=== PATIENT | male | born 1950 | race Caucasian/White ===

== ENCOUNTER 2020-12-12 10:50 | Emergency (ER) | payer MEDICARE, BC ==
--- NOTE | 2020-12-12 11:23 | ED Physician Documentation ---
PD HPI NVD - Stated complaint Stated Complaint: COLD SWEAT - Chief complaint Chief Complaint: Cardiac - History obtained from History obtained from: Patient - History of Present Illness Timing - onset: How many hours ago (2), Today Timing - duration: Minutes (He states he had gotten often had not had breakfast as yet and went to [employer]. Is doing the Covid shots 1 drug to get his Covid shot. Prior to receiving it, while standing he felt lightheaded nauseous and sweaty for just a minute. This improved after sitting down. He then got his Covid shot.) Timing - details: Abrupt onset, Now resolved (Has felt okay after that 1-2 minutes, once sat for a few minutes. Has felt okay with the shot and since. Concerned about heart cause of the symptoms, so came here for eval. Feeling okay still on arrival to ER.) Associated symptoms: Near syncope / syncope (briefly lightheaded, nauseated, pale/sweaty. Wtihout chest, abd nor head pain.). No: Fever, Abdominal pain, Dizzy, Loss of appetite Contributing factors: No: Sick contact, Bad food Improved by: Other (sitting down for few minutes.) Similar symptoms before: Has not had sx before Recently seen: Not recently seen Review of Systems Constitutional: denies: Fever, Chills Nose: denies: Rhinorrhea / runny nose, Congestion Throat: denies: Sore throat Cardiac: denies: Chest pain / pressure (Denies any exertional related chest pain or dyspnea. He has had less activity lately but still does yard work) Respiratory: denies: Cough GI: denies: Abdominal Pain, Nausea, Vomiting, Diarrhea Skin: denies: Rash, Lesions Musculoskeletal: denies: Extremity swelling Neurologic: denies: Syncope, Altered mental status, Headache PD PAST MEDICAL HISTORY - Past Medical History Cardiovascular: None Respiratory: None Neuro: None Endocrine/Autoimmune: None - Allergies Allergies/Adverse Reactions: Allergies Allergy/AdvReac Type Severity Reaction Status Date / Time penicillin G Allergy Anaphylaxis Verified 12/12/20 11:09 Penicillins Allergy Anaphylaxis Verified 12/12/20 11:09 PD ED PE NORMAL - Vitals Vital signs reviewed: Yes - General General: Alert and oriented X 3, No acute distress, Well developed/nourished - HEENT HEENT: Atraumatic, Pharynx benign - Neck Neck: Supple, no meningeal sign, No adenopathy - Cardiac Cardiac: RRR, No murmur - Respiratory Respiratory: Clear bilaterally - Abdomen Abdomen: Soft, Non tender - Derm Derm: Normal color, Warm and dry - Extremities Extremities: No tenderness to palpate, Normal ROM s pain, No edema, No calf tenderness / cord - Neuro Neuro: Alert and oriented X 3, No motor deficit, No sensory deficit, Normal speech Results - Vitals Vitals: Vital Signs - 24 hr 12/12/20 12/12/20 10:59 12:45 Temperature 36.8 C 36.8 C Heart Rate 70 64 Respiratory 18 18 Rate Blood Pressure 146/76 H 129/82 H O2 Saturation 100 99 Oxygen O2 Source Room air - EKG (time done) 11:15 Rate: Rate (enter#) (67) Rhythm: NSR [place]: Normal Intervals: Normal [place] QRS: Normal Ischemia: Normal ST segments. No: ST elevation c/w ischemia, ST depression - Labs Labs: Laboratory Tests 12/12/20 12/12/20 12/12/20 11:25 11:25 11:25 WBC 9.1 RBC 5.30 Hgb 16.0 Hct 48.4 MCV 91.3 MCH 30.2 MCHC 33.1 RDW 14.6 Plt Count 171 MPV 12.9 H Neut # (Auto) 6.9 H Lymph # (Auto) 1.4 L [place] # (Auto) 0.6 Eos # (Auto) 0.1 Baso # (Auto) 0.1 Absolute Nucleated RBC 0.00 Nucleated RBC % 0.0 Sodium 140 Potassium 3.9 Chloride 102 Carbon Dioxide 22 Anion Gap 16.0 H BUN 24 H Creatinine 0.8 Estimated GFR (MDRD) 96 Glucose 140 H Calcium 9.9 Troponin I High Sens 5.5 PD MEDICAL DECISION MAKING - ED course Complexity details: reviewed results, re-evaluated patient, considered differential (Transient lightheaded nausea and sweaty without chest pain lasting just a minute or 2 and improved with sitting down. This was 2 hours ago so a troponin and EKG at this point would be fairly conclusive to exclude acute DE. Check blood sugar too.), d/w patient Departure - Departure Disposition: 01 Home, Self Care Clinical Impression: Near syncope Condition: Stable Record reviewed to determine appropriate education?: Yes Instructions: ED Near Syncope Unkn Follow-Up: Yaakov Mott MD [Primary Care Provider] - Comments: EKG and blood tests and vital signs are good here. No obvious significant cause for your lightheaded/near syncopal episode. Stay well-hydrated. Follow-up with your primary care if recurrent episodes without obvious provocation. Return if significant symptoms to the ER. Discharge Date/Time: 12/12/20 12:53
[2020-12-12 12:01] LABS: BASOPHILS # (AUTO) 0.1 10^3/uL (0.0-0.1); BASOPHILS % (AUTO) 0.7 %; EOSINOPHILS # (AUTO) 0.1 10^3/uL (0.0-0.7); EOSINOPHILS % (AUTO) 1.4 %; LYMPHOCYTES # (AUTO) 1.4 10^3/uL (1.5-3.5); MEAN CORPUSCULAR HEMOGLOBIN 30.2 pg (27.0-31.0); MEAN CORPUSCULAR HGB CONC 33.1 g/dL (32.0-36.0); MEAN CORPUSCULAR VOLUME 91.3 fL (80.0-94.0); MEAN PLATELET VOLUME 12.9 fL (7.4-11.4); MONOCYTES # (AUTO) 0.6 10^3/uL (0.0-1.0); MONOCYTES % (AUTO) 6.2 %; NEUTROPHILS # (AUTO) 6.9 10^3/uL (1.5-6.6); NEUTROPHILS % (AUTO) 76.3 %; PLT - PLATELET COUNT 171 10^3/uL (130-450); RED CELL DISTRIBUTION WIDTH 14.6 % (12.0-15.0); WHITE BLOOD COUNT 9.1 x10^3/uL (4.8-10.8)
[2020-12-12 12:19] LABS: CALCIUM 9.9 mg/dL (8.5-10.3); CREATININE 0.8 mg/dL (0.6-1.2)
[2020-12-12 12:46] VITALS: BP 129/82
== END 2020-12-12 12:53 | disposition home or self-care (01) ==
LOC: ED 10:50
DX: R55 Syncope and collapse (principal); R42 Dizziness and giddiness
CPT/HCPCS: 36415; 80048; 84484; 85025; 93005; 99282; 99284

== ENCOUNTER 2021-09-28 10:28 | Outpatient (CLI) | payer MEDICARE, BC ==
[2021-09-28 11:37] VITALS: BP 151/92
--- NOTE | 2021-09-28 11:37 | SLEEP CARE CONSULTATION ---
Information from patient questionnaire entered by Luis Beaulieu MA. I have reviewed and concur with the information entered by Luis Beaulieu MA. This document represents the service I personally performed and the decisions made by , Vicky Camacho ARNP. History of Present Illness Service Date and Time: 09/28/2021 1028 Reason for Visit: New patient, Previously diagnosed sleep apnea (on oral appliance therapy) Chief Complaint: reports: Snoring, Excessive daytime sleepiness, Fatigue Date of Onset: 10 years Usual bedtime: 930 -1030 pm Time it takes to fall asleep: 10 minutes Snores at night: Yes Observed to quit breathing while asleep: Yes Sleeps alone due to snoring: No Number of times waking at night: 2-3 Reasons for waking at night: reports: Bathroom Toss, Turn, or Twitch while sleeping: No Recalls having dreams: Yes Usually gets out of bed at: 0630 Feels refreshed in the morning: No Morning headache: No Sleepy or fatigued during the day: Yes Ever fallen asleep while driving: No Takes day naps: Yes Dreams during day naps: No Prior sleep studies: Yes (8 years) Additional HPI information: FRANCESCO GUADALUPE was previously diagnosed to have mild, AHI 7.7, obstructive sleep apnea-hypopnea syndrome in 2003 at [facility] in [place], [place] and comes in today to establish care for Oral appliance therapy. He has been using the oral appliance for about 3+ years. He doesn't remember doing a sleep study with the oral appliance in place. He did try a CPAP for several months but could not tolerate using it. - Parasomnia Symptoms Ever been unable to move upon waking from sleep: No Walks in sleep: No Talks in sleep: No Ever acted out dreams in sleep: No Ever felt weak in the knees when startled or emotional: No Bothered by creepy, crawly, restless sensations in legs: No Problems with memory or concentration: No CPAP Compliance Data Compliance data discussion: He uses his oral appliance every night. He just got a new one made. He feels he sleeps on average 8 hours a night and does take a nap around 2 PM daily. Subjective On therapy, patient: reports: other (some days he is waking up feeling groggy or "wasted", but other days he feels rested in the mornings). denies: drowsiness while driving Initial [place] Sleepiness Scale score: 4 (in 2020) Past Medical History Past Medical History: reports: Arthritis, Hypothyroidism, GERD Social History The patient's occupation is a RE. Patient is and lives in . Have you smoked in the past 12 months: Yes (real light smoker) Cigarettes per day (20/pack): 4 Years of smokin Smoking Pack Years: 9.0 Alcohol use: Yes Alcohol amount and frequency: 3 x month Caffeine use: Yes Caffeine amount and frequency: 3 x daily Family History Family history of sleep disordered breathing: No Allergies and Home Medications Known drug allergies: Yes (penacillin) Drug allergies reviewed: Yes (Penicillin and avacados) Home medication list reviewed: Yes Allergy and home medication list: Levothyroxine Liothyronine Review of Systems Cardiovascular: reports: chest pain Respiratory: reports: sputum production Gastrointestinal: reports: heartburn Urinary: reports: frequency Ear/Nose/Throat: reports: wisdom teeth removed Endocrine: reports: thyroid disease, increased urination Musculoskeletal: reports: joint pain Immunologic: reports: sneezing, allergies to food or environment (avacados) Physical Exam Vital signs obtained and entered by: Petty Beaulieu CMA AACASTRO Blood Pressure: 151/92 (right hip pain) Cuff size: wrist Heart Rate: 58 O2 Saturation: 98 (with mask) Height: 5 ft 9 in Weight: 213 lb (with boots) Body Mass Index: 31.4 BMI Classification: Obese Heart: regular rate and rhythm Lungs: clear bilaterally Impression and Plan 1. Obstructive Sleep Apnea-Hypopnea Syndrome, mild. Using oral appliance therapy, the patient states he usually feels rested but will have days where he wakes up feeling groggy. He normally will take a nap daily. He states he ge nerally feels fatigued but this is normal for him. He states that occasionally he will have a whole body twitch in the last 6 months as he is falling asleep that really scares his . He is not sure the reason for this. It does not happen when fully asleep. He had an elevated blood pressure today but he states he is having some hip pain and had a large caffeinated drink prior to coming in today. Patient denies any symptoms today and is feeling well except for the pain. Patient's apnea severity and rationale for treatment to reduce apnea, improve sleep quality and reduce cardiovascular and cerebrovascular events was reviewed. Patient states he does not remember having a sleep study to verify that the oral appliance is working properly to control his apneas. I will order a PSG with oral appliance to check effectiveness of treatment. I will follow up with him after the PSG to go over results. Patient asking questions about Insp[facility] as a possible mode of treatment for him. He is currently diagnosed with mild obstructive sleep apnea which means he may not qualify for this modality. He voiced understanding and agreement with plan of care. Continue oral appliance therapy PSG with oral appliance in place Attempt to lose weight Call this office if any problems Return for follow up after sleep study, or sooner if concerns arise Counseling Topics: Weight loss health impact Visit Type: In Office Time Spent with Patient (minutes): 34 Provider Statement: I spent 100% of the Face to Face Visit with the patient with greater than 50% spent counseling the patient and coordination of care.
== END 2021-09-28 10:29 | disposition home or self-care (01) ==
LOC: SC 10:28
PROVIDERS: ATTEND Nurse Practitioner Family
DX: G47.33 Obstructive sleep apnea (adult) (pediatric) (principal); E66.9 Obesity, unspecified; Z68.31 Body mass index [BMI] 31.0-31.9, adult; F17.210 Nicotine dependence, cigarettes, uncomplicated
CPT/HCPCS: 99203; G0463; 99212

== ENCOUNTER 2021-12-06 19:19 | Outpatient (CLI) | payer MEDICARE, BC | END 2021-12-06 19:20 | disposition home or self-care (01) | LOC: SC 19:19 | PROVIDERS: ATTEND Nurse Practitioner Family | DX: G47.31 Primary central sleep apnea (principal); G47.61 Periodic limb movement disorder | CPT/HCPCS: 95810 ==

== ENCOUNTER 2021-12-25 12:37 | Outpatient (CLI) | payer MEDICARE ==
[2021-12-25 13:25] VITALS: BP 127/71
--- NOTE | 2021-12-25 13:25 | SLEEP CARE CONSULTATION ---
Information from patient questionnaire entered by Luis Barillas MA. I have reviewed and concur with the information entered by Luis Barillas MA. This document represents the service I personally performed and the decisions made by Doug garber Caren J, ARNP. History of Present Illness Service Date and Time: 12/25/2021 1237 Initial [place] Sleepiness Scale score: 4 (in 2020) Current [place] Sleepiness Scale score: 7 (2021) Additional HPI information: FRANCESCO GUADALUPE returns for follow up and results of the recently performed polysomnography. Patient wore his oral mandibular device during the sleep study to evaluate its effectiveness. Sleep Study - Results Type of Sleep Study: Polysomnography (F/U POLY) Prior sleep studies: Yes (8 years) Polysomnography/Home Sleep Study results: IMPRESSION: The quality of the study is good. The patient wore an oral appliance during this study. The patient had normal sleep efficiency. The sleep architecture was relatively normal as well. Respiratory monitoring showed mild central sleep apnea-hypopnea (AHI = 14.6) associated with frequent arousals, oxyhemoglobin desaturation and mild hypoxia (kristian oxygen saturation of 87%). The patient did not sleep supine during this study. Snore was infrequent and moderate in intensity. There was mild periodic leg movement of sleep not associated with sleep fragmentation. Cardiac rhythm was normal sinus rhythm without significant arrhythmia. No abnormal behavior (parasomnia) observed during the night. Allergies and Home Medications Known drug allergies: Yes ([facility]) Drug allergies reviewed: Yes Home medication list reviewed: Yes (no changes) Allergy and home medication list: Allergies penicillin G Allergy (Verified 12/12/20 11:09) Anaphylaxis Penicillins Allergy (Verified 12/12/20 11:09) Anaphylaxis Review of Systems Review of systems same as previous: Yes (no changes) Physical Exam Vital signs obtained and entered by: Petty BARILLAS CMA AACASTRO Blood Pressure: 127/71 (RESP 18, PULSE 62, LEFT) Cuff size: wrist Heart Rate: 72 O2 Saturation: 97 (CLOTH MASK) Height: 5 ft 9 in Impression and Plan 1. Obstructive Sleep Apnea-Hypopnea Syndrome, as previously diagnosed and on or al appliance therapy returns today to review results of PSG. He was found to have mild central sleep apneas 14.6 AHI with the oral appliance in place. I reviewed results with Dr. Cisneros and he recommended another polysomnography without the oral appliance in place to verify current severity and type of apneas for better therapy recommendations. I obtained agreement to proceed. The pathophysiology of obstructive sleep apnea-hypopnea syndrome was discussed with the patient and health risks of cardiovascular and cerebrovascular disease if not treated. Risks of drowsy driving discussed in detail and patient advised to avoid long distance driving and to kiln puller at the first sign of drowsiness. Patient agreed to plan. * Schedule polysomnography +- manual CPAP titration study and return in 1-2 we eks after the study to discuss result and initiate therapy. * Avoid long distance driving or driving when feeling sleepy. * Avoid alcohol, sedative and muscle relaxant around bedtime. * Attempt to lose weight. * Review instructions provided by trained office staff on how to prepare for the sleep study. * Return for follow-up after sleep study completed. Counseling Topics: Weight loss health impact Visit Type: In Office Time Spent with Patient (minutes): 23 Provider Statement: I spent 100% of the Face to Face Visit with the patient with greater than 50% spent counseling the patient and coordination of care.
== END 2021-12-25 12:38 | disposition home or self-care (01) ==
LOC: SC 12:37
PROVIDERS: ATTEND Nurse Practitioner Family
DX: G47.33 Obstructive sleep apnea (adult) (pediatric) (principal)
CPT/HCPCS: 99213; G0463; 99212

== ENCOUNTER 2022-01-27 20:18 | Outpatient (CLI) | payer MEDICARE | END 2022-01-27 20:19 | disposition home or self-care (01) | LOC: SC 20:18 | PROVIDERS: ATTEND Nurse Practitioner Family | DX: G47.61 Periodic limb movement disorder (principal) | CPT/HCPCS: 95810 ==

== ENCOUNTER 2022-03-04 10:41 | Outpatient (CLI) | payer MEDICARE ==
--- NOTE | 2022-03-04 14:36 | SLEEP CARE CONSULTATION ---
Information from patient questionnaire entered by Helga Henry. I have reviewed and concur with the information entered by Helga Henry. This document represents the service I personally performed and the decisions made by me, Deandra Jennings MD, [facility]. History of Present Illness Service Date and Time: 03/04/2022 1041 Initial [place] Sleepiness Scale score: 4 (in 2020) Additional HPI information: Mr. Cantrell was diagnosed with obstructive sleep apnea-hypopnea over 10 years ago and has been wearing an oral appliance. His polysomnography with the appliance showed mild central sleep apnea. A follow up polysomnography without the appliance was negative for sleep-disordered breathing. The patient did not sleep supine during either study (he never sleeps on his back, according to him). He does report not snoring as loudly with the appliance. He denies having restless leg syndrome. His main complaint is waking up feeling groggy. However, if he lies in bed longer, he cannot fall back asleep. He does take a short nap in the afternoon. Sleep Study - Results Type of Sleep Study: Polysomnography (3 WEEK F/U, POLY ON 01/27/22, SAW MIRANDA MARTIN 02/13/22, HAS QUESTIONS) Prior sleep studies: Yes (8 years) Allergies and Home Medications Drug allergies reviewed: Yes Home medication list reviewed: Yes Allergy and home medication list: Allergies penicillin G Allergy (Verified 12/12/20 11:09) Anaphylaxis Penicillins Allergy (Verified 12/12/20 11:09) Anaphylaxis Review of Systems Review of systems same as previous: Yes Physical Exam Vital signs obtained and entered by: KAITY MUELLER Height: 5 ft 9 in Impression and Plan IMPRESSION: 1. Obstructive Sleep Apnea-Hypopnea Syndrome, not present during his sleep studies here. I may use his oral appliance on as needed basis, e.g. for snore. The central sleep apnea found only during his first sleep study was mild and does not require further evaluation or treatment. 2. Fatigue, rather than sleepiness because he cannot sleep anymore in the morning. I explained to him that fatigue has many causes and needs to be worked up further by his primary care provider. The patient does have hypothyroidism. 3. Periodic leg movement of sleep, not disrupting sleep. The patient does not have restless leg syndrome either. Treatment is not indicated. Ferritin and iron levels should be checked PLAN: 1. Use the oral appliance on as needed basis. 2. Follow up with his primary care provider regarding fatigue. Follow up with Sleep Care in: as needed Visit Type: Telehealth Video (PHONE# [phone]) Video Type: Doximity Patient Location: Home Location of Provider: Home Patient agrees and consents to this telehealth visit type: Yes Patient agrees to have their insurance billed: Yes Time Spent with Patient (minutes): 15 Provider Statement: I spent 100% of the Telehealth Video Call with the patient with greater than 50% spent counseling the patient and coordination of care.
== END 2022-03-04 10:42 | disposition home or self-care (01) ==
LOC: SC 10:41
PROVIDERS: ATTEND Internal Medicine Pulmonary Disease
DX: R53.83 Other fatigue (principal); G47.61 Periodic limb movement disorder; R06.83 Snoring